=== PATIENT | male | born 2000 | race Two or more races ===

== ENCOUNTER 2019-02-06 09:35 | Inpatient (IN) | payer OTHER ==
[~2019-02-06] VITALS: Ht 177.8 cm; Wt 106.6 kg
[2019-02-06 09:39] VITALS: Ht 177.8 cm; Wt 106.6 kg
[2019-02-06 10:00] LABS: BASOPHIL % 0.3 % (0-2); PLATELET COUNT 330 x10^3mcL (130-400); RED CELL DISTRIBUTION WIDTH 12.7 % (11.5-14.5)
[2019-02-06 10:07] LABS: CALCIUM 9.6 mg/dL (8.5-10.1); CARBON DIOXIDE 32.6 mmol/L (21-32); CHLORIDE SERUM 97 mmol/L (98-107); CREATININE SERUM 0.9 mg/dL (0.7-1.3); GFR1 > 60 mL/min; GLUCOSE SERUM 99 mg/dL (74-106); SODIUM SERUM 137 mmol/L (136-145)
[2019-02-06 10:19] LABS: ALBUMIN 4.1 g/dL (3.4-5.0); ALKALINE PHOSPHATASE 181 U/L (46-116); ALT/SGPT 275 U/L (16-63); AST/SGOT 99 U/L (15-37); BILIRUBIN TOTAL 6.6 mg/dL (0.20-1.00)
[2019-02-06 10:34] LABS: LIPASE 28311 IU/L (73-393)
[2019-02-06 12:52] LABS: UA SPECIFIC GRAVITY 1.025 (1.005-1.035); microscopic required? YES; urine erythrocyte NEGATIVE (NEGATIVE)
[2019-02-06 12:54] LABS: T3 TOTAL 0.93 ng/mL
[2019-02-06 13:14] VITALS: BP 117/62
[2019-02-06 13:21] LABS: FREE T4 1.3 ng/dL (0.76-1.46); FREE THYROXINE INDEX 4.2 ug/dL (1.4-4.5); T4(THYROXINE) 11.8 ug/dL (4.7-13.3)
[2019-02-06 13:32] LABS: MAGNESIUM 2.2 mg/dL (1.8-2.4); PHOSPHOROUS 4.3 mg/dL (2.5-4.9)
[2019-02-06 17:35] VITALS: BP 119/50
[2019-02-06 22:22] VITALS: BP 121/55
[2019-02-07 05:44] VITALS: BP 108/55
[2019-02-07 07:43] LABS: BASOPHIL % 0.5 % (0-2); PLATELET COUNT 252 x10^3mcL (130-400); RED CELL DISTRIBUTION WIDTH 12.6 % (11.5-14.5)
[2019-02-07 07:53] LABS: BILIRUBIN DIRECT 1.09 mg/dL (0.0-0.2); BILIRUBIN TOTAL 1.65 mg/dL (0.20-1.00); TOTAL PROTEIN, SERUM 7.1 g/dL (6.4-8.2)
[2019-02-07 07:55] LABS: ALBUMIN 3.2 g/dL (3.4-5.0)
[2019-02-07 07:56] LABS: CALCIUM 8.7 mg/dL (8.5-10.1); CARBON DIOXIDE 29.5 mmol/L (21-32); CHLORIDE SERUM 103 mmol/L (98-107); CREATININE SERUM 0.9 mg/dL (0.7-1.3); GFR1 > 60 mL/min; GLUCOSE SERUM 80 mg/dL (74-106); POTASSIUM SERUM 4.6 mmol/L (3.5-5.1); SODIUM SERUM 140 mmol/L (136-145)
[2019-02-07 10:50] VITALS: BP 118/62
[2019-02-07 17:17] VITALS: BP 117/56
[2019-02-07 21:56] VITALS: BP 112/56
[2019-02-08 06:38] LABS: ALKALINE PHOSPHATASE 121 U/L (46-116); ALT/SGPT 123 U/L (16-63); AST/SGOT 27 U/L (15-37); BILIRUBIN DIRECT 0.61 mg/dL (0.0-0.2); CALCIUM 8.8 mg/dL (8.5-10.1); CARBON DIOXIDE 31.6 mmol/L (21-32); CHLORIDE SERUM 102 mmol/L (98-107); CREATININE SERUM 0.9 mg/dL (0.7-1.3); GFR1 > 60 mL/min; GLUCOSE SERUM 87 mg/dL (74-106); LIPASE 767 IU/L (73-393); POTASSIUM SERUM 4.3 mmol/L (3.5-5.1); SODIUM SERUM 140 mmol/L (136-145); TOTAL PROTEIN, SERUM 6.8 g/dL (6.4-8.2)
[2019-02-08 07:04] VITALS: BP 127/79
[2019-02-08 08:02] LABS: BASOPHIL % 0.6 % (0-2); PLATELET COUNT 236 x10^3mcL (130-400); RED CELL DISTRIBUTION WIDTH 12.4 % (11.5-14.5)
[2019-02-08 17:24] VITALS: BP 113/63
[2019-02-08 22:32] VITALS: BP 114/59
[2019-02-09 06:14] LABS: BILIRUBIN DIRECT 0.53 mg/dL (0.0-0.2); TOTAL PROTEIN, SERUM 7.1 g/dL (6.4-8.2)
[2019-02-09 06:15] LABS: ALBUMIN 3.1 g/dL (3.4-5.0)
[2019-02-09 06:27] VITALS: BP 135/72
[2019-02-09 09:04] LABS: BASOPHIL % 0.1 % (0-2); PLATELET COUNT 278 x10^3mcL (130-400); RED CELL DISTRIBUTION WIDTH 12.9 % (11.5-14.5)
[2019-02-09 09:05] VITALS: BP 118/56
[2019-02-09 13:39] LABS: CALCIUM 8.7 mg/dL (8.5-10.1); CARBON DIOXIDE 22.2 mmol/L (21-32); CHLORIDE SERUM 99 mmol/L (98-107); CREATININE SERUM 0.9 mg/dL (0.7-1.3); GFR1 > 60 mL/min; POTASSIUM SERUM 4.2 mmol/L (3.5-5.1); SODIUM SERUM 136 mmol/L (136-145)
[2019-02-09 14:35] LABS: GLUCOSE SERUM 91 mg/dL (74-106)
[2019-02-09 18:06] VITALS: BP 130/63
[2019-02-09 22:35] VITALS: BP 125/57
[2019-02-10 05:37] VITALS: BP 119/69
[2019-02-10 06:58] LABS: BILIRUBIN DIRECT 0.45 mg/dL (0.0-0.2); BILIRUBIN TOTAL 0.75 mg/dL (0.20-1.00); TOTAL PROTEIN, SERUM 6.9 g/dL (6.4-8.2)
[2019-02-10 07:13] LABS: BASOPHIL % 0.3 % (0-2); PLATELET COUNT 246 x10^3mcL (130-400); RED CELL DISTRIBUTION WIDTH 12.8 % (11.5-14.5)
[2019-02-10 10:10] VITALS: BP 124/91
[2019-02-10 18:18] VITALS: BP 132/56
[2019-02-10 21:00] VITALS: BP 126/52
[2019-02-11 06:09] VITALS: BP 110/56
[2019-02-11 06:54] LABS: BASOPHIL % 0.4 % (0-2); PLATELET COUNT 256 x10^3mcL (130-400)
[2019-02-11 07:07] LABS: CARBON DIOXIDE 30.2 mmol/L (21-32); CHLORIDE SERUM 102 mmol/L (98-107); CREATININE SERUM 0.8 mg/dL (0.7-1.3); GFR1 > 60 mL/min; GLUCOSE SERUM 91 mg/dL (74-106); POTASSIUM SERUM 3.8 mmol/L (3.5-5.1); SODIUM SERUM 139 mmol/L (136-145)
[2019-02-11 09:06] VITALS: BP 136/75
[2019-02-11] MEDS ORDERED: IBUPROFEN400 MG PO (10:14)
[2019-02-11 10:44] VITALS: BP 136/75
== END 2019-02-11 12:56 | disposition home or self-care (01) | DRG 414 ==
LOC: ED 09:35 → MU 11:24
PROVIDERS: Emergency Medicine; General Practice; Internal Medicine Gastroenterology; Surgery; ADMIT Internal Medicine
PROC: 0FJ44ZZ Inspection of Gallbladder, Percutaneous Endoscopic Approach (ICD-10-PCS; 2019-02-08)
PROC: BF131ZZ Fluoroscopy of Gallbladder and Bile Ducts using Low Osmolar Contrast (ICD-10-PCS; 2019-02-08)
PROC: 0FT40ZZ Resection of Gallbladder, Open Approach (ICD-10-PCS; principal; 2019-02-08 07:30)
DX: K80.40 Calculus of bile duct with cholecystitis, unspecified, without obstruction (principal); K85.10 Biliary acute pancreatitis without necrosis or infection; E66.9 Obesity, unspecified
CPT/HCPCS: 83880; 84439; 97110-GP; 97116-GP; C1758; C1887; C9113; J0696; J1170; J1885; J2543; J3010; J3490; J7030; J7120; Q0092; Q0162; Q9967